=== PATIENT | male | born 1995 | race Caucasian/White ===

== ENCOUNTER 2017-06-08 17:04 | Emergency (ER) | payer SELFPAY ==
[~2017-06-08] VITALS: Ht 177.8 cm; Wt 54.9 kg
[2017-06-08 17:12] VITALS: BP 124/82; PULSE 103; RESP 14; O2SAT 100
== END 2017-06-08 18:19 | disposition left against medical advice (07) ==
LOC: SED 17:04 → EDBD 17:04 → SED 18:19
DX: Z53.20 Procedure and treatment not carried out because of patient's decision for unspecified reasons (principal)